=== PATIENT | male | born 1950 | race Caucasian/White ===

== ENCOUNTER 2019-09-02 10:05 | Emergency (ER) | payer OTHER, SELFPAY ==
[2019-09-02 10:29] VITALS: BP 160/82; PULSE 66; RESP 12; TEMP 36.6; O2SAT 98
--- NOTE | 2019-09-02 10:48 | DI.MRI.S_ITS ---
PROCEDURE: MR CERVICAL SPINE WO CON INDICATIONS: severe pain, hx narrowed disc space TECHNIQUE: Noncontrast sagittal T1 spin echo and T2 fast spin echo, sagittal STIR, foraminal oblique sagittal T2 fast spin echo, and axial gradient echo or T2 fast spin echo through the cervical spine. COMPARISON: None. FINDINGS: Image quality: Excellent. Alignment and Curvature: There is normal bony alignment. There is straightening of the cervical spine curvature. Bone Marrow: Mild reactive endplate changes adjacent to the C2-C3, C3-C4, C4-C5, C5-C6, C6-C7 and C7-T1 discs. Spinal Cord: Visualized spinal cord has normal size and signal. No cerebellar tonsillar herniation. Paraspinous Soft Tissues: No paravertebral masses. Prevertebral soft tissues are normal in thickness. C2-C3: Loss of the signal. Mild, diffuse disc bulge. Mild central canal. Moderate right mild left facet hypertrophy. Severe right and mild left neural foraminal narrowing compression the exiting right C3 nerve root. C3-C4: Loss of signal and height. Mild, diffuse disc bulge. Moderate central canal. Mild bilateral facet hypertrophy. Moderate bilateral uncovertebral joint hypertrophy. Severe bilateral neural foraminal narrowing compression of the exiting C4 nerve roots. C4-C5: Loss of disc signal and height. Mild, diffuse disc bulge. Small right central disc protrusion appears severe narrowing of the central canal with mild compression of the cervical spinal cord. Mild bilateral facet hypertrophy. Severe bilateral uncovertebral joint hypertrophy. Severe bilateral neural foraminal narrowing with compression of the exiting bilateral C5 nerve roots. C5-C6: Loss of disc signal and height. Moderate diffuse disc bulge. Severe narrowing of the central canal with mild compression of the cervical spinal cord. Mild bilateral facet hypertrophy. Moderate bilateral uncovertebral joint hypertrophy. Severe bilateral neural foraminal narrowing compression of the exiting C6 nerve roots. C6-C7: Loss of disc signal and height. Moderate, diffuse disc bulge. Right central disc protrusion. Severe narrowing of the central canal with compression of the cervical spinal cord. Mild bilateral facet hypertrophy. Moderate bilateral uncovertebral joint hypertrophy. Severe bilateral neural foraminal narrowing compression of the exiting C7 nerve roots. C7-T1: Loss of disc signal and height. Mild, diffuse disc bulge. Mild narrowing of the central canal. Mild bilateral facet hypertrophy. Severe bilateral neural foraminal narrowing and compression of the bilateral C8 nerve roots. IMPRESSION: 1. Multilevel degenerative disc disease 2. Multilevel facet and uncovertebral arthropathy. 3. Severe C4-C5, C5-C6 and C6-C7 central canal narrowing with mild compression of the cervical spinal cord. 4. Severe bilateral C3-C4, C4-C5, C5-C6, C6-C7 C7 and C7-T1 neural foraminal narrowing with compression of the exiting bilateral C4 nerve roots, exiting bilateral C5 nerve roots, exiting bilateral C6 nerve roots, exiting bilateral C7 nerve roots and exiting bilateral C8 nerve roots, respectively. Severe right C2 and C3 neural foraminal narrowing with compression of the exiting right C3 nerve root. Dictated by: Chelo Guardado MD, PhD on 09/02/2019 at 12:23 Approved by: Chelo Guardado MD, PhD on 09/02/2019 at 12:52
[2019-09-02] MEDS: diazePAM 5 MG TABLET PO (10:54)
--- NOTE | 2019-09-02 11:56 | ED_ITS ---
HPI - Neck Pain/Injury General Chief Complaint: Neck Pain/Injury Stated Complaint: Neck and Shoulder pain Time Seen by Provider: 09/02/19 10:09 Source: patient Mode of arrival: Ambulatory Limitations: no limitations History of Present Illness HPI Narrative: 69-year-old male nonsmoker with noncontributory medical history presents with multiple weeks of worsening neck pain. He denies any injury nor fever or chills. He denies any numbness, tingling or weakness in his extremities. He has a history of neck pain reaching back many years and has prior x-ray showing narrow disc space but no recent imaging. He has been attempting to see his primary care provider but has been unsuccessful during the COVID pandemia. Pain is worse with motion and improves with rest Related Data Previous Rx's Medication Instructions Recorded diazepam [Valium] 2 mg PO BID-TID PRN #10 tab 09/02/19 hydrocodone-acetaminophen 1 tab PO Q4-6H PRN #10 tab 09/02/19 ketorolac 10 mg PO Q6H PRN #14 tab 09/02/19 Allergies Allergy/AdvReac Type Severity Reaction Status Date / Time No Known Drug Allergies Allergy Verified 09/02/19 10:55 Review of Systems Constitutional Constitutional: Denies chills, Denies fatigue, Denies fever(s), Denies frequent falls, Denies lethargy and Denies weakness Eyes Eyes: Denies change in vision, Denies eye discharge, Denies irritation and D enies loss of vision ENT Ears, Nose, Mouth, and Throat: Denies change in voice, Denies dizziness, Reports neck pain, Denies sore throat and Denies throat swelling Cardiovascular Cardiovascular: Denies chest pain, Denies irregular heart rhythm, Denies lightheadedness, Denies palpitations, Denies dyspnea, Denies dyspnea on exertion and Denies orthopnea Respiratory Respiratory: Denies cough, Denies dyspnea, Denies dyspnea on exertion and Denies wheezing Gastrointestinal Gastrointestinal: Denies abdominal pain, Denies change in bowel habits, Denies diarrhea, Denies nausea and Denies vomiting Genitourinary Genitourinary: Denies hematuria, Denies flank pain, Denies urinary incontinence and Denies urinary urgency Musculoskeletal Musculoskeletal: Denies back pain, Denies muscle weakness, Reports neck pain, Denies numbness and Denies tingling Integumentary/Breasts Skin/Breast: Denies pruritus, Denies erythema, Denies rash and Denies wounds Neurologic Neurologic: Denies behavioral changes, Denies confusion, Denies dizziness, Denies frequent falls, Denies loss of vision, Denies numbness, Denies tingling and Denies weakness Psychiatric Psychiatric: Denies anxiety, Denies behavioral changes, Denies confusion, Denies depression, Denies homicidal ideation and Denies suicidal ideation Endocrine Endocrine: Denies fatigue, Denies flushing and Denies palpitations Hematologic/Lymphatic Hematologic/Lymphatic: Denies easy bruising Allergic/Immunologic Allergic/Immunologic: Denies urticaria, Denies throat swelling and Denies wheezing Patient History Social History Smoking Status: Never smoker Smoking Status: Never smoker alcohol intake frequency: holidays/special occasions only Substance Use Type: does not use Exam Narrative Exam Narrative: GENERAL: [69] year old patient appears stated age. Well- nourished, well-developed patient, in mild distress. Obviously uncomfortable, holding his neck stationary HEAD: Atraumatic. Normocephalic. EYES: Pupils equal round and reactive. Extraocular motions intact. No scleral icterus. No injection or drainage. ENT: Nose without bleeding, purulent drainage. Throat without erythema, tonsillar hypertrophy or exudate. Airway patent. NECK: Trachea midline. Midline tenderness to palpation, no redness, warmth or obvious anatomic abnormality. No worsening with axial loading. CARDIOVASCULAR: Regular rate and rhythm without murmurs, gallops, or rubs. RESPIRATORY: Clear to auscultation. Breath sounds equal bilaterally. No wheezes, rales, or rhonchi. GASTROINTESTINAL: Abdomen soft, non-tender, nondistended. EXTREMITIES: No edema or joint tenderness. Full strength, range of motion and sensation BACK: Nontender without deformity or crepitance. No flank tenderness. NEURO: AOx3. SKIN: No rash or erythema of visible areas Initial Vital Signs Initial Vital Signs: Vital Signs Temperature 98 F 09/02/19 10:29 Pulse Rate 66 09/02/19 10:29 Respiratory Rate 12 09/02/19 10:29 Blood Pressure 160/82 H 09/02/19 10:29 Pulse Oximetry 98 09/02/19 10:29 Course Course Course Narrative: discussion with ortho. Pain control and follow up. No need for steroids given lack of radiculopathy. Orders Ordered: ED Orders 09/02/19 10:48 MR cervical spine wo con Stat Discontinued Medications Diazepam (Valium) 5 mg PO NOW ONE Stop: 09/02/19 10:49 Last Admin: 09/02/19 10:54 Dose: 5 mg Documented by: ANNABEL Vital Signs Vital signs: Vital Signs - 8 hr 09/02/19 13:11 Pulse Rate 70 Respiratory Rate 16 Blood Pressure 150/78 H Pulse Oximetry 97 MDM - Neck Pain/Injury Imaging Data MRI C Spine: Radiologist's Impression: [address] [address] Magnetic Resonance Report Signed Patient: Ortiz Dawson JMR#: [id number] : 1950Acct:[id number] Age/Sex: 69 / MDate of Service: 09/02/19 Loc: ED Accession Number: [id number] Procedure: MR cervical spine wo con Ordering Provider: Daniel Lucia D.O. PROCEDURE: MR CERVICAL SPINE WO CON INDICATIONS: severe pain, hx narrowed disc space TECHNIQUE: Noncontrast sagittal T1 spin echo and T2 fast spin echo, sagittal STIR, foraminal oblique sagittal T2 fast spin echo, and axial gradient echo or T2 fast spin echo through the cervical spine. COMPARISON: None. FINDINGS: Image quality: Excellent. Alignment and Curvature: There is normal bony alignment. There is straightening of the cervical spine curvature. Bone Marrow: Mild reactive endplate changes adjacent to the C2-C3, C3-C4, C4-C5, C5-C6, C6-C7 and C7-T1 discs. Spinal Cord: Visualized spinal cord has normal size and signal. No cerebellar tonsillar herniation. Paraspinous Soft Tissues: No paravertebral masses. Prevertebral soft tissues are normal in thickness. C2-C3: Loss of the signal. Mild, diffuse disc bulge. Mild central canal. Moderate right mild left facet hypertrophy. Severe right and mild left neural foraminal narrowing compression the exiting right C3 nerve root. C3-C4: Loss of signal and height. Mild, diffuse disc bulge. Moderate central canal. Mild bilateral facet hypertrophy. Moderate bilateral uncovertebral joint hypertrophy. Severe bilateral neural foraminal narrowing compression of the exiting C4 nerve roots. C4-C5: Loss of disc signal and height. Mild, diffuse disc bulge. Small right central disc protrusion appears severe narrowing of the central canal with mild compression of the cervical spinal cord. Mild bilateral facet hypertrophy. Severe bilateral uncovertebral joint hypertrophy. Severe bilateral neural foraminal narrowing with compression of the exiting bilateral C5 nerve roots. C5-C6: Loss of disc signal and height. Moderate diffuse disc bulge. Severe narrowing of the central canal with mild compression of the cervical spinal cord. Mild bilateral facet hypertrophy. Moderate bilateral uncovertebral joint hypertrophy. Severe bi lateral neural foraminal narrowing compression of the exiting C6 nerve roots. C6-C7: Loss of disc signal and height. Moderate, diffuse disc bulge. Right central disc protrusion. Severe narrowing of the central canal with compression of the cervical spinal cord. Mild bilateral facet hypertrophy. Moderate bilateral uncovertebral joint hypertrophy. Severe bilateral neural foraminal narrowing compression of the exiting C7 nerve roots. C7-T1: Loss of disc signal and height. Mild, diffuse disc bulge. Mild narrowing of the central canal. Mild bilateral facet hypertrophy. Severe bilateral neural f oraminal narrowing and compression of the bilateral C8 nerve roots. IMPRESSION: 1. Multilevel degenerative disc disease 2. Multilevel facet and uncovertebral arthropathy. 3. Severe C4-C5, C5-C6 and C6-C7 central canal narrowing with mild compression of the cervical spinal cord. 4. Severe bilateral C3-C4, C4-C5, C5-C6, C6-C7 C7 and C7-T1 neural foraminal narrowing with compression of the exiting bilateral C4 nerve roots, exiting bilateral C5 nerve roots, exiting bilateral C6 nerve roots, exiting bilateral C7 nerve roots and exiting bilateral C8 nerve roots, respectively. Severe right C2 and C3 neural foraminal narrowing with compression of the exiting right C3 nerve root. Dictated by: Chelo Guardado MD, PhD on 09/02/2019 at 12:23 Approved by: Chelo Guardado MD, PhD on 09/02/2019 at 12:52 Discharge Plan Departure Patient Disposition: Home Clinical Impression: Disc disorder of cervical region Discharge Date/Time: 09/02/19 13:23 Instructions: DI for Neck Pain Activity Restrictions/Additional Instructions: *You have been diagnosed with [ neck pain with multiple levels of disc disease ] *What to do: *Take medications as directed *Follow up with [facility] in 2-3 days, call for an appointment. Let them know you were seen in the Emergency Department and that we ask that you be seen in follow up *Return to ER if you should have any new, worsening or concerning symptoms Prescriptions: New hydrocodone-acetaminophen 5-325 mg tablet 1 tab PO Q4-6H PRN (Reason: pain) Qty: 10 RF: 0 ketorolac 10 mg tablet 10 mg PO Q6H PRN (Reason: pain) Qty: 14 RF: 0 diazepam [Valium] 2 mg tablet 2 mg PO BID-TID PRN (Reason: muscle spasm) Qty: 10 RF: 0 Referrals: Harpreet Richardson MD [Physician] -
[2019-09-02 13:11] VITALS: BP 150/78; PULSE 70; RESP 16; O2SAT 97
--- NOTE | 2019-09-02 13:11 | PC.NURSE ---
chronic neck and upper thoracic pain getting worse over the last few weeks. no recent trauma or injury. awaiting MRI
--- NOTE | 2019-09-02 15:14 | PC.NURSE ---
Trisha (pharmacist) from [facility] called and states they do not carry ketorolac. Discussed w/ Dr. Lucia who substituted ibuprofen 600 mg po q8 hr prn pain, # 15, no refills. Trisha verbalized understanding. No questions.
== END 2019-09-02 13:23 | disposition home or self-care (01) ==
PROVIDERS: Emergency Provider Emergency Medicine; Referring Provider Emergency Medicine
DX: M50.90 Cervical disc disorder, unspecified, unspecified cervical region (principal)
CPT/HCPCS: 72141; 99283

== ENCOUNTER 2020-08-28 03:00 | Emergency (ER) | payer OTHER, MEDICARE, SELFPAY ==
[2020-08-28 03:05] VITALS: BP 161/95; PULSE 72; RESP 18; TEMP 36.9; O2SAT 97
--- NOTE | 2020-08-28 03:23 | DI.RAD.S_ITS ---
PROCEDURE: XR CHEST 1V INDICATIONS: chest pain and pressure TECHNIQUE: One view of the chest was acquired. COMPARISON: [facility], CR, XR CHEST 1 VIEW, 01/07/2019, 18:29. [facility], CT, CT ANGIO CHEST PE, 01/07/2019, 20:13. [facility], CT, CT ANGIO CHEST PE PROTOCOL, 08/28/2020, 4:35. FINDINGS: Surgical changes and devices: None. Lungs and pleura: Mild, streaky opacities are seen at the lung bases. On this semiupright portable chest examination, no large pneumothorax or large pleural effusions are seen. No focal infiltrates are seen. Mediastinum: Mediastinal contours appear normal. Heart size is normal. Bones and chest wall: No suspicious bony lesions. Overlying soft tissues appear unremarkable. IMPRESSION: Portable chest within normal limits, with likely atelectasis at the lung bases. Note: No significant discrepancy from the preliminary report. Dictated by: Artur Brown M.D. on 08/28/2020 at 7:20 Approved by: Artur Brown M.D. on 08/28/2020 at 7:22
[2020-08-28 03:42] LABS: Add Manual Diff / Slide Review NO; Basophils Absolute Auto 0 /uL (0-100); Basophils Percent Auto 0.5 % (0-2); Eosinophils Absolute Auto 100 /uL (0-450); Eosinophils Percent Auto 0.7 % (2-4); Hematocrit 44.7 % (41-53); Hemoglobin 14.8 g/dL (13.5-17.5); Lymphocytes Absolute Auto 1600 /uL (1100-4500); Lymphocytes Percent Auto 22.8 % (25-40); Mean Corpuscular HGB Conc 33.1 % (30-36); Mean Corpuscular Hemoglobin 28.5 PG (26-34); Mean Corpuscular Volume 85.9 fL (80-100); Monocytes Absolute Auto 600 /uL (0-900); Neutrophils Absolute Auto 4600 /uL (1500-7000); Platelet Count 263 X10^3/uL (150-400); Red Cell Distribution Width 13.5 % (11.6-14.8); White Blood Cell Count 6.9 X10^3/uL (4.5-11.0)
[2020-08-28 03:54] LABS: Alanine Aminotransferase 25 IU/L (<50); Albumin 4.5 g/dL (3.5-5.0); Albumin Globulin Ratio 1.7 (1.0-2.8); Alkaline Phosphatase 42 U/L (38-126); Aspartate Aminotransferase 41 IU/L (17-59); BUN Creatinine Ratio 22.5 (6-22); Bilirubin Total 0.3 mg/dL (0.2-1.3); Blood Urea Nitrogen 18 mg/dL (9-20); Calcium 9.3 mg/dL (8.4-10.2); Carbon Dioxide 29 mmol/L (22-32); Chloride 105 mmol/L (98-107); Creatine Kinase 118 U/L (55-170); Estimated Glomerular Filt Rate > 60.0 mL/min (>60); Globulin 2.7 g/dL (1.7-4.1); Glucose 108 mg/dL (80-110); HEMOLYSIS 34 (0-50); Lipase 143 U/L (23-300); Potassium 4.1 mmol/L (3.4-5.1); Sodium 142 mmol/L (137-145); Total Protein 7.2 g/dL (6.3-8.2)
[2020-08-28 04:03] LABS: NT-proBNP (BNP-Adult 18+) 57 pg/mL (<125)
[2020-08-28 04:06] LABS: Troponin I < 0.012 ng/mL (0.01-0.034)
[2020-08-28 04:08] LABS: D Dimer 623 ng/mL (<230)
[2020-08-28 04:09] LABS: CKMB % Relative Index 0.9 % (1.5-5.0); Creatine Kinase MB 1.09 ng/mL (<2.37)
--- NOTE | 2020-08-28 04:18 | DI.CT.S_ITS ---
PROCEDURE: CT ANGIO CHEST PE PROTOCOL INDICATIONS: chest pain, sob, hx DVT/PE TECHNIQUE: After the administration of intravenous contrast, 2 mm thick sections acquired from the pulmonary apices to the posterior costophrenic angles. 3-dimensional maximum intensity projection (MIP) coronal and sagittal reformats were then acquired through the thorax. For radiation dose reduction, the following was used: automated exposure control, adjustment of mA and/or kV according to patient size. COMPARISON: [facility], CR, XR CHEST 1V, 08/28/2020, 3:25. [facility], CR, XR CHEST 1 VIEW, 01/07/2019, 18:29. [facility], CT, CT ANGIO CHEST PE, 01/07/2019, 20:13. FINDINGS: Image quality: Excellent. Pulmonary arteries: Pulmonary arteries are normal in size, and demonstrate no intraluminal filling defects to suggest central pulmonary embolism. Lungs and pleura: Mild dependent atelectasis is seen. No pleural effusions or pneumothorax. Central and peripheral airways are patent. Mediastinum: Heart size is normal, without pericardial effusion. There is moderate coronary artery calcification. No mediastinal or hilar adenopathy. Thoracic aorta is normal in caliber and enhancement. Esophagus is normal in caliber, without hiatal hernia. Bones and chest wall: No suspicious bony lesions. Age-appropriate bony degenerative changes are seen. Ribs and thoracic spine appear intact throughout. Thyroid gland demonstrates no significant abnormality. No axillary or supraclavicular adenopathy. Abdomen: Colonic diverticulosis is seen, without findings of active diverticulitis. The visualized portions of the upper abdominal structures are otherwise unremarkable for imaging technique. IMPRESSION: Negative for pulmonary embolism. Incidental note is made of: Coronary artery calcification Mild dependent atelectasis Colonic diverticulosis Note: No significant discrepancy from the preliminary report. Dictated by: Artur Brown M.D. on 08/28/2020 at 7:30 Approved by: Artur Brown M.D. on 08/28/2020 at 7:32
[2020-08-28] MEDS: SODIUM CHLORIDE 0.9% 1,000 ML 150 ML IV (04:25)
--- NOTE | 2020-08-28 04:30 | ED_ITS ---
HPI - URI/Sore Throat General Chief Complaint: Upper Respiratory Symptoms Stated Complaint: pain left leg has hx of DVT Time Seen by Provider: 08/28/20 03:00 Source: patient Mode of arrival: Ambulatory Limitations: no limitations History of Present Illness HPI Narrative: 70M nonsmoker with history of DVT and PE on eliquis presents with the chief complaint of left knee pain and swelling in the absence of any obvious injury. He states he has got pain and some swelling behind his left knee and is particularly concerned because of his history of clotting. Denies any change in the dosing of his anticoagulant states he has not missed any doses. Additionally he has had some squeezing chest pain and pressure for the past few days. He denies any obvious provocation, palliation or radiation. He has had no fever or chills. Denies any hemoptysis. Related Data Previous Rx's Medication Instructions Recorded diazepam [Valium] 2 mg PO BID-TID PRN #10 tab 09/02/19 hydrocodone-acetaminophen 1 tab PO Q4-6H PRN #10 tab 09/02/19 ketorolac 10 mg PO Q6H PRN #14 tab 09/02/19 diazepam [Valium] 2 mg PO BID-TID PRN #10 tab 08/28/20 hydrocodone-acetaminophen 1 tab PO Q4-6H PRN #10 tab 08/28/20 lidocaine [Lidoderm] 1 patch TOP DAILY #15 each 08/28/20 Allergies Allergy/AdvReac Type Severity Reaction Status Date / Time No Known Drug Allergies Allergy Verified 09/02/19 10:55 Review of Systems Constitutional Constitutional: Denies chills, Denies fatigue, Denies fever(s), Denies frequent falls, Denies lethargy and Denies weakness Eyes Eyes: Denies change in vision, Denies eye discharge, Denies irritation and Denies loss of vision ENT Ears, Nose, Mouth, and Throat: Denies change in voice, Denies dizziness, Denies neck pain, Denies sore throat and Denies throat swelling Cardiovascular Cardiovascular: Reports chest pain, Denies irregular heart rhythm, Reports leg edema, Denies lightheadedness, Denies palpitations, Denies dyspnea, Denies dyspnea on exertion and Denies orthopnea Respiratory Respiratory: Denies cough, Denies dyspnea, Denies dyspnea on exertion and Denies wheezing Gastrointestinal Gastrointestinal: Denies abdominal pain, Denies change in bowel habits, Denies diarrhea, Denies nausea and Denies vomiting Musculoskeletal Musculoskeletal: Denies neck pain and Denies numbness Integumentary/Breasts Skin/Breast: Denies pruritus, Denies erythema, Denies rash and Denies wounds Neurologic Neurologic: Denies behavioral changes, Denies confusion, Denies dizziness, Denies frequent falls, Denies loss of vision, Denies numbness and Denies weakness Psychiatric Psychiatric: Denies anxiety, Denies behavioral changes, Denies confusion, Denies depression, Denies homicidal ideation and Denies suicidal ideation Endocrine Endocrine: Denies fatigue, Denies flushing and Denies palpitations Hematologic/Lymphatic Hematologic/Lymphatic: Denies easy bruising Allergic/Immunologic Allergic/Immunologic: Denies urticaria, Denies throat swelling and Denies wheezing Patient History Social History Smoking Status: Never smoker Smoking Status: Never smoker alcohol intake frequency: holidays/special occasions only Substance Use Type: does not use Exam Narrative Exam Narrative: GENERAL: [70] year old patient appears stated age. Well- nourished, well-developed patient, in mild distress. HEAD: Atraumatic. Normocephalic. EYES: Pupils equal round and reactive. Extraocular motions intact. No scleral icterus. No injection or drainage. ENT: Nose without bleeding, purulent drainage. Throat without erythema, tonsillar hypertrophy or exudate. Airway patent. NECK: Trachea midline. Non tender CARDIOVASCULAR: Regular rate and rhythm without murmurs, gallops, or rubs. RESPIRATORY: Clear to auscultation. Breath sounds equal bilaterally. No wheezes, rales, or rhonchi. GASTROINTESTINAL: Abdomen soft, non-tender, nondistended. EXTREMITIES: Mild tenderness to palpation in posterior R knee No edema or joint tenderness. BACK: Nontender without deformity or crepitance. No flank tenderness. NEURO: AOx3. SKIN: No rash or erythema of visible areas Initial Vital Signs Initial Vital Signs: Vital Signs Temperature 98.5 F 08/28/20 03:05 Pulse Rate 72 08/28/20 03:05 Respiratory Rate 18 08/28/20 03:05 Blood Pressure 161/95 H 08/28/20 03:05 Pulse Oximetry 97 08/28/20 03:05 Course Orders Ordered: ED Orders 08/28/20 03:23 XR chest 1V Stat EKG-12 Lead Stat 08/28/20 03:31 Complete Blood Count AUTO DIFF Stat Comprehensive Metabolic Panel Stat D Dimer Stat Lipase Stat NT-proBNP (BNP-Adult 18+) Stat Troponin & CK Cardiac Panel Stat 08/28/20 04:18 CT angio chest PE protocol Stat Sodium Chloride (Normal Saline 0.9%) 1,000 mls @ 150 mls/hr IV CONT MEGHAN Last Admin: 08/28/20 04:25 Dose: 150 mls/hr Documented by: RONALD Vital Signs Vital signs: Vital Signs - 8 hr 08/28/20 03:05 Temperature 98.5 F Pulse Rate 72 Respiratory Rate 18 Blood Pressure 161/95 H Pulse Oximetry 97 MDM - URI/Sore Throat Lab Data Result diagrams: 08/28/20 03:31 08/28/20 03:31 Labs: Lab Results 08/28/20 08/28/20 08/28/20 Range/Units 03:31 03:31 03:31 WBC 6.9 (4.5-11.0) X10^3/uL RBC 5.20 (4.5-5.9) X10^6/uL Hgb 14.8 (13.5-17.5) g/dL Hct 44.7 (41-53) % MCV 85.9 (80-100) fL MCH 28.5 (26-34) PG MCHC 33.1 (30-36) % RDW 13.5 (11.6-14.8) % Plt Count 263 (150-400) X10^3/uL Neut % (Auto) 67.0 (50-75) % Lymph % (Auto) 22.8 L (25-40) % [place] % (Auto) 9.0 (3-14) % Eos % (Auto) 0.7 L (2-4) % Baso % (Auto) 0.5 (0-2) % Neut # (Auto) 4600 (6285-3950) /uL Lymph # (Auto) 1600 (0619-0792) /uL [place] # (Auto) 600 (0-900) /uL Eos # (Auto) 100 (0-450) /uL Baso # (Auto) 0 (0-100) /uL D-Dimer 623 H (<230) ng/mL Sodium (137-145) mmol/L Potassium (3.4-5.1) mmol/L Chloride (98-107) mmol/L Carbon Dioxide (22-32) mmol/L BUN (9-20) mg/dL Creatinine (0.66-1.25) mg/dL Estimated GFR (>60) mL/min BUN/Creatinine Ratio (6-22) Glucose (80-110) mg/dL Calcium (8.4-10.2) mg/dL Total Bilirubin (0.2-1.3) mg/dL AST (17-59) IU/L ALT (<50) IU/L Alkaline Phosphatase (38-126) U/L Total Creatine Kinase (55-170) U/L CK-MB (CK-2) (<2.37) ng/mL CK-MB (CK-2) Rel Index (1.5-5.0) % Troponin I (0.01-0.034) ng/mL NT-Pro-B Natriuret Pep 57 (<125) pg/mL Total Protein (6.3-8.2) g/dL Albumin (3.5-5.0) g/dL Globulin (1.7-4.1) g/dL Albumin/Globulin Ratio (1.0-2.8) Lipase (23-300) U/L // Range/Units 03:31 WBC (4.5-11.0) X10^3/uL RBC (4.5-5.9) X10^6/uL Hgb (13.5-17.5) g/dL Hct (41-53) % MCV (80-100) fL MCH (26-34) PG MCHC (30-36) % RDW (11.6-14.8) % Plt Count (150-400) X10^3/uL Neut % (Auto) (50-75) % Lymph % (Auto) (25-40) % [place] % (Auto) (3-14) % Eos % (Auto) (2-4) % Baso % (Auto) (0-2) % Neut # (Auto) (9018-7311) /uL Lymph # (Auto) (4536-7161) /uL [place] # (Auto) (0-900) /uL Eos # (Auto) (0-450) /uL Baso # (Auto) (0-100) /uL D-Dimer (<230) ng/mL Sodium 142 (137-145) mmol/L Potassium 4.1 (3.4-5.1) mmol/L Chloride 105 (98-107) mmol/L Carbon Dioxide 29 (22-32) mmol/L BUN 18 (9-20) mg/dL Creatinine 0.80 (0.66-1.25) mg/dL Estimated GFR > 60.0 (>60) mL/min BUN/Creatinine Ratio 22.5 H (6-22) Glucose 108 (80-110) mg/dL Calcium 9.3 (8.4-10.2) mg/dL Total Bilirubin 0.3 (0.2-1.3) mg/dL AST 41 (17-59) IU/L ALT 25 (<50) IU/L Alkaline Phosphatase 42 (38-126) U/L Total Creatine Kinase 118 (55-170) U/L CK-MB (CK-2) 1.09 (<2.37) ng/mL CK-MB (CK-2) Rel Index 0.9 L (1.5-5.0) % Troponin I < 0.012 (0.01-0.034) ng/mL NT-Pro-B Natriuret Pep (<125) pg/mL Total Protein 7.2 (6.3-8.2) g/dL Albumin 4.5 (3.5-5.0) g/dL Globulin 2.7 (1.7-4.1) g/dL Albumin/Globulin Ratio 1.7 (1.0-2.8) Lipase 143 (23-300) U/L Imaging Data CT scan - chest: Radiologist's Impression: No pulmonary emboli, pneumonia or pneumothorax MDM Narrative Medical decision making narrative: Patient with some chest pain and trouble br eathing over many days and history of blood clot. He has been on Eliquis and has missed no doses and the risk is low but given his presentation and CT angiogram is performed. There are no abnormal findings. Over the course of the visit he has developed spasming of the musculature in his back which is very reproducible, sharp and stabbing and absent of any red flag findings. Multiple diagnoses considered including pulmonary embolism versus pneumothorax versus pneumonia versus pericardial effusion versus hematoma versus other. Extensive return precautions given, questions answered to his apparent satisfaction. Discharge Plan Departure Patient Disposition: Home Clinical Impression: Trouble breathing Back pain Qualifiers: Back pain location: thoracic back pain Chronicity: acute Back pain laterality: bilateral Qualified Code(s): M54.6 - Pain in thoracic spine Chest pain Qualifiers: Chest pain type: unspecified Qualified Code(s): R07.9 - Chest pain, unspecified Instructions: DI for Thoracic Back Pain Activity Restrictions/Additional Instructions: *You have been diagnosed with [chest pain and back pain. Your lab work, CT scan and EKG are very reassuring, there is no evidence of blood clot, collapsed lung or other ominous finding] *What to do: *Please continue to take your regular medications as directed. [ ] New medication prescriptions sent to your pharmacy: [ ] [ x] New medication written as a paper prescription [ ] No new medications given *Please follow up with your primary care provider in 2-3 days, call for an appointment. Let them know you were seen in the Emergency Department and that we ask that you be seen in follow up. We will electronically transmit a record of today's note if your PCP is in our system *If you do not have a primary care provider please contact the [facility] Resource line at [phone]. They will ask some questions about your medical history and help get you set up with a doctor in the community. *Return to Emergency Department if you should have any new, worsening or concer james symptoms, such as [fever greater than 101 F, shaking chills, worsening pain, persistent vomiting or other bothersome symptoms] Prescriptions: New hydrocodone-acetaminophen 5-325 mg tablet 1 tab PO Q4-6H PRN (Reason: pain) Qty: 10 RF: 0 diazepam [Valium] 2 mg tablet 2 mg PO BID-TID PRN (Reason: muscle spasm) Qty: 10 RF: 0 lidocaine [Lidoderm] 5 % adhesive patch,medicated 1 patch TOP DAILY Qty: 15 RF: 0 No Action hydrocodone-acetaminophen 5-325 mg tablet 1 tab PO Q4-6H PRN (Reason: pain) Qty: 10 RF: 0 ketorolac 10 mg tablet 10 mg PO Q6H PRN (Reason: pain) Qty: 14 RF: 0 diazepam [Valium] 2 mg tablet 2 mg PO BID-TID PRN (Reason: muscle spasm) Qty: 10 RF: 0
[2020-08-28] MEDS: LIDOCAINE PATCH 1 EACH ADH..PATCH TOP (05:40)
[2020-08-28] MEDS: CYCLOBENZAPRINE 10 MG PREPACK 1 BOTTLE MISC (05:40)
[2020-08-28] MEDS: KETOROLAC 30 MG/ML VIAL 15 MG IV (05:40)
[2020-08-28 06:45] VITALS: BP 120/72; PULSE 68; RESP 16; O2SAT 98
== END 2020-08-28 06:47 | disposition home or self-care (01) ==
PROVIDERS: Emergency Provider Emergency Medicine
DX: R06.00 Dyspnea, unspecified (principal); M54.6 Pain in thoracic spine; R07.9 Chest pain, unspecified; M25.562 Pain in left knee
CPT/HCPCS: 36415; 71045; 71275; 80053; 81003; 82550; 82553; 83690; 83880; 84484; 85025; 85379; 93005; 93010; 96361; 96374; 99284; J1885; Q9967